=== PATIENT | male | born 1930 | race Caucasian/White ===

== ENCOUNTER 2018-08-29 11:38 | Inpatient (IN) | payer MEDICARE ==
[~2018-08-29] VITALS: Ht 175.3 cm; Wt 77.1 kg
--- NOTE | 2018-08-29 11:44 | NUR ---
PT BROUGHT IN FROM HOME BY PARAMEDICS FOR SOB PT HAS A HISTORY OEMPHYSEMA AND HAS SOMKED FOR 20 YEARS NOT SMOKING NOW. PT ALERT WITH ORIENTATION X 4 PT NOTED TO BE USING ACCOSORY MUSCLES RT AT BEDSIDE PLACED ON NRM SATURATION ON ROOM AIR 91% CURRENTLY 100%. PT HAS 20G PIV IN LEFT AC
[2018-08-29] MEDS ORDERED: methylPREDNISolone SOD SUCC 125 MG/2ML VIAL ONE (11:49)
[2018-08-29] MEDS ORDERED: IPRATROPIUM NEB FS 0.5 MG/2.5 ML AMPUL.NEB NEB ONE (12:00)
[2018-08-29] MEDS ORDERED: methylPREDNISolone SOD SUCC 125 MG/2ML VIAL IV ONE (12:00)
[2018-08-29] MEDS ORDERED: ALBUTEROL FS 2.5 MG/3 ML VIAL.NEB NEB ONE (12:00)
[2018-08-29 12:05] LABS: BASOPHILS # (AUTO) 0.1 /CMM (0.0-0.2); BASOPHILS % (AUTO) 0.4 % (0.0-2.0); HEMATOCRIT 40 % (39-51); HEMOGLOBIN 13.3 g/dL (13.5-17.5); LYMPHOCYTES # (AUTO) 0.4 /CMM (0.8-4.8); LYMPHOCYTES % (AUTO) 3.3 % (20.0-44.0); MEAN CORPUSCULAR HGB CONC 34 g/dl (31.0-36.0); MEAN CORPUSCULAR VOLUME 98 fL (80-96); MONOCYTES # (AUTO) 0.8 /CMM (0.1-1.30); MONOCYTES % (AUTO) 6.5 % (2.0-12.0); NEUTROPHILS # (AUTO) 10.5 /CMM (1.8-8.9); NEUTROPHILS % (AUTO) 89.8 % (43.0-81.0); PLATELET COUNT (AUTO) 145 /CMM (150-450); RED BLOOD CELL COUNT(AUTO) 4.05 MIL/uL (4.5-6.0); WHITE BLOOD COUNT (AUTO) 11.7 K/uL (4.3-11.0)
[2018-08-29] MEDS ORDERED: ALBUTEROL FS 2.5 MG/3 ML VIAL.NEB ONE (12:11)
[2018-08-29] MEDS ORDERED: IPRATROPIUM NEB FS 0.5 MG/2.5 ML AMPUL.NEB ONE (12:11)
--- NOTE | 2018-08-29 12:25 | NUR ---
TROPIN 0.465
[2018-08-29 12:28] LABS: ALANINE AMINOTRANSFERASE 57 U/L (12-78); ALBUMIN 3.2 g/dL (3.4-5.0); ALKALINE PHOSPHATASE 241 U/L (46-116); ASPARTATE AMINOTRANSFERASE 52 U/L (15-37); B-TYPE NATRIURETIC PEPTIDE 18050 PG/ML (0-125); BILIRUBIN,DIRECT 0.8 mg/dL (0.0-0.2); BILIRUBIN,TOTAL 2.1 mg/dL (0.2-1.0); CALCIUM, SERUM 8.7 mg/dL (8.5-10.1); CARBON DIOXIDE 29 mmol/L (21-32); CHLORIDE 105 mmol/L (98-107); CREATININE 2.5 mg/dL (0.6-1.3); GLUCOSE 142 mg/dL (74-106); SODIUM SERUM 140 mmol/L (136-145); TOTAL PROTEIN, SERUM 7.1 g/dL (6.4-8.2); UREA NITROGEN, BLOOD 50 mg/dL (7-18)
[2018-08-29] MEDS ORDERED: LOSA25TA27 PO (12:41)
[2018-08-29] MEDS ORDERED: AMLO2.5T3 PO (12:41)
--- NOTE | 2018-08-29 12:41 | NUR ---
CALLED [facility]ARDO FOR STAT READ ON CXR
--- NOTE | 2018-08-29 12:42 | NUR ---
TELE 324-2
[2018-08-29] MEDS ORDERED: BUDE10.22 IH (12:48)
[2018-08-29] MEDS ORDERED: CEFTRIAXONE 1 G VIAL ONE (12:50)
[2018-08-29] MEDS ORDERED: ASPIRIN 325 MG TABLET PO ONE (13:00)
[2018-08-29] MEDS ORDERED: FUROSEMIDE 40 MG/4 ML VIAL IV ONE (13:00)
[2018-08-29] MEDS ORDERED: AZITHROMYCIN 500 MG in IV D5W 250 ML IV ONE (13:00)
[2018-08-29] MEDS ORDERED: CEFTRIAXONE 1GM BAG (ER ONLY) 50 ML IV ONE (13:00)
--- NOTE | 2018-08-29 13:06 | NUR ---
PAGED DR DOYLE FOR PANEL ADMISSION
[2018-08-29] MEDS ORDERED: ASPIRIN 325 MG TABLET ONE (13:15)
[2018-08-29] MEDS ORDERED: FUROSEMIDE 40 MG/4 ML VIAL ONE (13:15)
[2018-08-29] MEDS ORDERED: ACETAMINOPHEN 325 MG TABLET PO PRN (13:30)
[2018-08-29] MEDS ORDERED: Z GUARD REMEDY 2 OZ OINT TP PRN (13:30)
[2018-08-29] MEDS ORDERED: ONDANSETRON HCL/PF 4 MG/2 ML VIAL IVP PRN (13:30)
[2018-08-29] MEDS ORDERED: MAG HYDROX/AL HYDROX/SIMETH 30 ML UDC PO PRN (13:30)
[2018-08-29] MEDS ORDERED: MAGNESIUM HYDROXIDE 30 ML UDC PO PRN (13:30)
[2018-08-29] MEDS ORDERED: HYDROCODONE/APAP 5/325MG 1 EACH TABLET PO PRN (13:30)
--- NOTE | 2018-08-29 13:43 | NUR ---
PT ADMITTED TO ROOM 234-2 RN REPORT GIVEN TO ASNAC
--- NOTE | 2018-08-29 13:50 | NUR ---
EMBLEM MAKERACTIVITY THERAPY TEACHER NOTES RECEIVED PT FROM ER NURSE IN STABLE CONDITION. PT WILL BE ADMITTED FOR CHF. PT'S CURRENT WEIGHT IS 177.2. ADMISSION ORDERS NOTED PT IS A/O X3. HE DENIES SOB AT THIS TIME. BREATHING IS EVEN AND UNLABORED. PT PLACED ON 2.5 L VIA NC AND SATING AT 93%. IV TO RIGHT AC NOTED TO BE PATENT AND INTACT. NO REDNESS OR SIGNS OF INFILTRATION NOTED. TELE LEADS PLACE. PT IS CURRENTLY SINUS TACH ON THE MONITOR WITH A HR OF 106. HE DENIES ANY CHEST PAIN. BELONGINGS VERIFIED BY PEDIATRIC DENTAL HYGIENIST. PT ORIENTATED TO ROOM AND USE OF CALL LIGHT. BED IN LOW LOCKED POSITION, SIDE RAILS UP X2, CALL LIGHT WITHIN REACH. WILL CONTINUE TO MONITOR
[2018-08-29 14:00] VITALS: BP 166/73
[2018-08-29] MEDS ORDERED: CLONIDINE HCL 0.1 MG TABLET PO PRN (14:00)
[2018-08-29] MEDS: CARVEDILOL 3.125 MG TABLET PO SCH ×2 (15:02→21:06)
--- NOTE | 2018-08-29 15:57 | NUR ---
TELEPHONE ORDER OBTAINED FROM DR. DOYLE FOR PRN ALBUTEROL 2.5MG Q6HR
[2018-08-29 16:00] VITALS: BP 141/84
[2018-08-29] MEDS ORDERED: ALBUTEROL FS 2.5 MG/0.5 ML VIAL.NEB NEB PRN (16:00)
[2018-08-29 16:18] LABS: MAGNESIUM 2.6 mg/dL (1.8-2.4); PHOSPHORUS 4.3 mg/dL (2.5-4.9)
[2018-08-29 16:50] LABS: THYROID STIMULATING HORMONE 2.294 uIU/mL (0.358-3.74)
[2018-08-29] MEDS ORDERED: FUROSEMIDE 40 MG/4 ML VIAL IV SCH (17:00)
[2018-08-29] MEDS: ENOXAPARIN SODIUM 30 MG/0.3 ML DISP.SYRIN SQ SCH (17:29)
[2018-08-29] MEDS: FUROSEMIDE 40 MG/4 ML VIAL IV SCH ×2 (17:30→20:12)
[2018-08-29] MEDS: DILTIAZEM HCL CD 240 MG PO SCH (17:31)
--- NOTE | 2018-08-29 18:48 | NUR ---
WEBSITE ADMIN CLOSING NOTES PT REMAINS STABLE SINCE ADMISSION. VITALS STABLE AT THIS TIME. HE CONTINUES TO DENY ANY SOB. IV REMAINS PATENT AND INTACT. HE REMAINS ST ON THE TELE MONITOR WITH A CURRENT HR OF 109. SAFETY MEASURES REMAIN IN PLACE. WILL ENDORSE TO NIGHTSHIFT RN FOR LYLE
--- NOTE | 2018-08-29 19:05 | NUR ---
CLEANER AND TRIMMER INITIAL NOTES Received patient sitting up in bed, watching TV. Alert, oriented x 4. Breathing even and unlabored. Not in any distress. No complaints of pain or discomfort as of this time. Tele monitor in place, reading sinus tachy with PVC's HR 109. Call landry within reach. Bed in low, locked position. Patient stable as endorsed by the morning shift RN. Will continue to monitor accordingly
[2018-08-29 20:00] VITALS: BP 143/75
[2018-08-29] MEDS: methylPREDNISolone SOD SUCC 125 MG/2ML VIAL IV SCH (21:05)
[2018-08-29] MEDS: NITROGLYCERIN PACKET 1 GM PACKET TOP SCH (21:13)
--- NOTE | 2018-08-29 23:15 | NUR ---
LOCKSTITCH FRONT EDGE TAPE SEWER NOTES On tele monitor, HR is 125-130. Checked on patient if he feels like his heart is racing fast, as per patient," no, i don't feel anything out of the ordinary. I don't feel like my heart is beating faster than usual."
[2018-08-30] VITALS: BP 110/66
[2018-08-30] MEDS: FUROSEMIDE 40 MG/4 ML VIAL IV SCH (00:03)
[2018-08-30 04:00] VITALS: BP 125/63
[2018-08-30] MEDS: NITROGLYCERIN PACKET 1 GM PACKET TOP SCH ×3 (05:15→21:06)
[2018-08-30 06:10] LABS: BASOPHILS % (AUTO) 0.5 % (0.0-2.0); HEMATOCRIT 39 % (39-51); HEMOGLOBIN 12.7 g/dL (13.5-17.5); LYMPHOCYTES # (AUTO) 0.3 /CMM (0.8-4.8); LYMPHOCYTES % (AUTO) 3.1 % (20.0-44.0); MEAN CORPUSCULAR HGB CONC 33 g/dl (31.0-36.0); MEAN CORPUSCULAR VOLUME 99 fL (80-96); MONOCYTES # (AUTO) 0.1 /CMM (0.1-1.30); MONOCYTES % (AUTO) 1.4 % (2.0-12.0); NEUTROPHILS # (AUTO) 8.7 /CMM (1.8-8.9); PLATELET COUNT (AUTO) 153 /CMM (150-450); WHITE BLOOD COUNT (AUTO) 9.1 K/uL (4.3-11.0)
[2018-08-30 06:26] LABS: CALCIUM, SERUM 8.7 mg/dL (8.5-10.1); CARBON DIOXIDE 26 mmol/L (21-32); CHLORIDE 105 mmol/L (98-107); CREATININE 2.8 mg/dL (0.6-1.3); GLUCOSE 188 mg/dL (74-106); MAGNESIUM 2.5 mg/dL (1.8-2.4); PHOSPHORUS 4.9 mg/dL (2.5-4.9); POTASSIUM 4.7 mmol/L (3.5-5.1); SODIUM SERUM 143 mmol/L (136-145); UREA NITROGEN, BLOOD 58 mg/dL (7-18)
[2018-08-30 06:40] LABS: CHOLESTEROL 131 mg/dL (<200); HDL CHOLESTEROL 59 mg/dL (40-60); LDL 62 mg/dL (0-99); TRIGLYCERIDES 72 mg/dL (30-150)
--- NOTE | 2018-08-30 06:40 | NUR ---
[facility] NOTES Lab called for critical value. Trop I 0.400. Dr. Laguerre aware. No orders as of this time
--- NOTE | 2018-08-30 06:57 | NUR ---
GENERATOR WORKER CLOSING NOTES Patient sitting up in bed, alert, oriented x 4. Breathing even and unlabored. Not in any distress. No complaints as of this time. Tele monitor in place, sinus tachy with PACs and BBB HR 120. IV site on LAC g#20 intact and patent. All needs attended to. All due medications given as ordered. Call landry within reach.Bed in low, locked position. Will endorse LYLE to oncoming RN
[2018-08-30] MEDS ORDERED: AZITHROMYCIN 500 MG in IV D5W 250 ML IV SCH (07:00)
--- NOTE | 2018-08-30 07:57 | NUR ---
SUPERVISOR PARTICLEBOARD OPENING NOTES RECEIVED PT FROM NIGHTSHIFT NURSE IN STABLE CONDITION. PT IS A/O X3. NO SOB OR ACUTE SIGNS OF DISTRESS NOTED. BREATHING IS EVEN AND UNLABORED. PT ON 2 L VIA NC AND SATING WELL. IV TO RIGHT AC NOTED TO BE PATENT AND INTACT. NO REDNESS OR SIGNS OF INFILTRATION NOTED. PT IS CURRENTLY SINUS TACH ON THE MONITOR WITH A HR OF 112. HE DENIES ANY CHEST PAIN. BED IN LOW LOCKED POSITION, SIDE RAILS UP X2, CALL LIGHT WITHIN REACH. WILL CONTINUE TO MONITOR
[2018-08-30 08:00] VITALS: BP 124/76
[2018-08-30 08:20] LABS: ALBUMIN 2.9 g/dL (3.4-5.0); BILIRUBIN,DIRECT 0.4 mg/dL (0.0-0.2); BILIRUBIN,TOTAL 1.1 mg/dL (0.2-1.0)
[2018-08-30] MEDS: FLUTICASONE/VILANTEROL 1 EACH BLST.W.DEV IH SCH (08:23)
[2018-08-30] MEDS: methylPREDNISolone SOD SUCC 125 MG/2ML VIAL IV SCH (08:24)
[2018-08-30] MEDS: ASPIRIN 325 MG TABLET PO SCH (08:24)
[2018-08-30] MEDS: DILTIAZEM HCL CD 240 MG PO SCH (08:25)
[2018-08-30] MEDS: CARVEDILOL 3.125 MG TABLET PO SCH ×2 (08:26→21:05)
[2018-08-30] MEDS ORDERED: AMLODIPINE BESYLATE 5 MG TABLET PO SCH (09:00)
[2018-08-30] MEDS ORDERED: Medication Not On Formulary EA (Budesonide/Formoterol Fumarate (Symbicort 80-4.5 Mcg Inh IH SCH (09:00)
[2018-08-30] MEDS: AZITHROMYCIN 500 MG in IV D5W 250 ML IV SCH (12:18)
[2018-08-30] MEDS: IPRATROPIUM NEB FS 0.5 MG/2.5 ML AMPUL.NEB NEB PRN (12:28)
[2018-08-30] MEDS: CEFTRIAXONE 1 G in IV D5W 50 ML IV SCH (13:38)
[2018-08-30] MEDS: LACTOBACILLUS RHAMNOSUS GG 1 EACH CAP.SPRINK PO SCH (16:07)
[2018-08-30 16:11] VITALS: BP 104/55
--- NOTE | 2018-08-30 19:08 | NUR ---
MS RN CLOSING NOTES PT REMAINS STABLE. VITALS STABLE THROUGHOUT SHIFT. HE CONTINUES TO DENY ANY SOB. IV REMAINS PATENT AND INTACT. SAFETY MEASURES REMAIN IN PLACE. WILL ENDORSE TO NIGHTSHIFT RN FOR LYLE
--- NOTE | 2018-08-30 19:10 | NUR ---
RN INITIAL NOTES Received patient sitting up in bed, alert, oriented x 4. Breathing even and unlabored. Not in any distress. Able to make needs known. No complaints of pain or discomfort as of this time. Call landry within reach. Bed in low, locked position. Patient stable as endorsed by the morning shift RN. Will continue to monitor accordingly
[2018-08-30 20:00] VITALS: BP_SYST 123; BP_SYST 132; BP_DIAS 75; BP_DIAS 77
[2018-08-30] MEDS: ENOXAPARIN SODIUM 30 MG/0.3 ML DISP.SYRIN SQ SCH (21:08)
[2018-08-31 00:40] VITALS: BP 122/55
--- NOTE | 2018-08-31 00:40 | NUR ---
RN NOTES Patient complaining of shortness of breath. V/S checked; BP- 122/55, HR- 57, SPO2- 92%. Called RT for breathing treatment
[2018-08-31] MEDS: IPRATROPIUM NEB FS 0.5 MG/2.5 ML AMPUL.NEB NEB PRN ×2 (00:44→12:35)
[2018-08-31] MEDS: NITROGLYCERIN PACKET 1 GM PACKET TOP SCH ×3 (05:00→20:52)
--- NOTE | 2018-08-31 06:22 | NUR ---
RN CLOSING NOTES Patient sitting up in bed, alert, oriented x 4. Able to make needs known. Not in any distress. Stated that he feels better, no SOB. No complaints as of this time. Call landry within reach. Bed in low, locked position. Will endorse LYLE to oncoming RN.
--- NOTE | 2018-08-31 07:37 | NUR ---
HOSPICE OFFICE COORDINATOR OPENING NOTES RECEIVED PATIENT AWAKE IN BED IN NO ACUTE SIGNS OF DISTRESS. HOB ELEVATED. A/O X4. VERBALLY RESPONSIVE, DENIES ANY PAIN OR DISCOMFORTS AT THIS TIME. ON ROOM AIR, BREATHING EVEN AND UNLABORED. IV ACCESS ON TRAMAINE INTACT AND PATENT, IVF OF NS @ 75 ML/HR AND HEPARIN DRIP @ 19 ML/HR INFUSING, NO S/S OF INFILTRATIONS NOTED. ON TELE-MONITORING WITH CURRENT READING OF NSR AND HR OF 65, NO C/O CARDIAC DISTRESS VOICED. SAFETY MEASURES IN PLACE . BED IN LOW LOCKED POSITION WITH SIDE-RAILS UP X2. CALL LIGHT IN REACH. WILL CONTINUE TO MONITOR PT ACCORDINGLY Addendum: 08/31/18 at 0747 by GERALDINE TELLEZ RN ERROR: PROGRESS NOTES IS FOR DIFFERENT PATIENT.
--- NOTE | 2018-08-31 07:41 | NUR ---
MS RN OPENING NOTES RECEIVED PT FROM NIGHTSHIFT NURSE IN STABLE CONDITION. PT IS A/O X3. NO SOB OR ACUTE SIGNS OF DISTRESS NOTED. BREATHING IS EVEN AND UNLABORED. PT ON 2 L VIA NC AND SATING WELL. IV TO LEFT FA NOTED TO BE PATENT AND INTACT. NO REDNESS OR SIGNS OF INFILTRATION NOTED. HE DENIES ANY CHEST PAIN. BED IN LOW LOCKED POSITION, SIDE RAILS UP X2, CALL LIGHT WITHIN REACH. WILL CONTINUE TO MONITOR
[2018-08-31 08:24] VITALS: BP 126/56
[2018-08-31] MEDS: FLUTICASONE/VILANTEROL 1 EACH BLST.W.DEV IH SCH (08:38)
[2018-08-31] MEDS: LACTOBACILLUS RHAMNOSUS GG 1 EACH CAP.SPRINK PO SCH ×2 (08:39→17:28)
[2018-08-31] MEDS: ASPIRIN 325 MG TABLET PO SCH (08:39)
[2018-08-31] MEDS: CARVEDILOL 3.125 MG TABLET PO SCH ×2 (08:40→20:52)
[2018-08-31] MEDS: DILTIAZEM HCL CD 240 MG PO SCH (09:00)
[2018-08-31] MEDS ORDERED: methylPREDNISolone SOD SUCC 125 MG/2ML VIAL IV SCH (09:00)
[2018-08-31] MEDS: AZITHROMYCIN 500 MG in IV D5W 250 ML IV SCH (11:16)
[2018-08-31] MEDS ORDERED: FLUTICASONE PROPIONATE 16 GM BOTTLE NS PRN (11:30)
[2018-08-31 12:02] LABS: CALCIUM, SERUM 8.4 mg/dL (8.5-10.1); CARBON DIOXIDE 26 mmol/L (21-32); CHLORIDE 103 mmol/L (98-107); CREATININE 4.3 mg/dL (0.6-1.3); GLUCOSE 188 mg/dL (74-106); MAGNESIUM 2.9 mg/dL (1.8-2.4); PHOSPHORUS 6.8 mg/dL (2.5-4.9); POTASSIUM 4.8 mmol/L (3.5-5.1); SODIUM SERUM 140 mmol/L (136-145)
[2018-08-31 12:18] LABS: UREA NITROGEN, BLOOD 93 mg/dL (7-18)
[2018-08-31 12:20] LABS: BASOPHILS % (AUTO) 0.1 % (0.0-2.0); HEMATOCRIT 38 % (39-51); HEMOGLOBIN 12.2 g/dL (13.5-17.5); LYMPHOCYTES # (AUTO) 0.2 /CMM (0.8-4.8); MEAN CORPUSCULAR HGB CONC 33 g/dl (31.0-36.0); MEAN CORPUSCULAR VOLUME 100 fL (80-96); MONOCYTES # (AUTO) 0.6 /CMM (0.1-1.30); MONOCYTES % (AUTO) 4.5 % (2.0-12.0); NEUTROPHILS # (AUTO) 11.6 /CMM (1.8-8.9); NEUTROPHILS % (AUTO) 93.4 % (43.0-81.0); PLATELET COUNT (AUTO) 174 /CMM (150-450); RED BLOOD CELL COUNT(AUTO) 3.75 MIL/uL (4.5-6.0); WHITE BLOOD COUNT (AUTO) 12.4 K/uL (4.3-11.0)
--- NOTE | 2018-08-31 12:27 | NUR ---
MS RN NOTES: CRITICAL VALUE BLOCKING MACHINE OPERATOR SECOND CALLED TO REPORT A CRITICAL LAB BUN VALUE OF 98. A REPEAT WAS ASKED AND RESULTED TO 93. DR. GREENE AT BEDSIDE WITH PT AND WAS INFORMED OF CRITICAL VALUE. PER MD "I WILL D/C PTS ABX, AND BEGIN HYDRATION FLUIDS TO FLUSH OUT HIS KIDNEYS". WILL CARRY OUT ORDERS
[2018-08-31] MEDS: CEFTRIAXONE 1 G in IV D5W 50 ML IV SCH (12:42)
[2018-08-31] MEDS ORDERED: IV NS 0.9% 1,000 ML IV PRN (12:45)
[2018-08-31 16:00] VITALS: BP 113/52
--- NOTE | 2018-08-31 18:32 | NUR ---
MS RN CLOSING NOTES PT REMAINS STABLE. VITALS STABLE THROUGHOUT SHIFT. HE CONTINUES TO DENY ANY SOB. HE DENIES ANY CHEST PAIN. IV REMAINS PATENT AND INTACT. PT TOLERATING NS INFUSION WELL. SAFETY MEASURES REMAIN IN PLACE. WILL ENDORSE TO NIGHTSHIFT RN FOR LYLE
--- NOTE | 2018-08-31 19:42 | NUR ---
RN MS OPENING NOTES RECEIVED PT SITTING UP IN BED, AWAKE, A/OX4. BREATHING EVEN AND UNLABORED ON 2L OF O2 VIA NC. NO COMPLAINT OF PAIN OR DISCOMFORT. IV ACCESS ON THE L FA 22G WITH NS @50ML/HR. BED IN LOWEST LOCKED POSITION, CALL LIGHT WITHIN REACH AT ALL TIMES. WILL CONTINUE TO MONITOR.
[2018-08-31 20:00] VITALS: BP 125/71
[2018-08-31] MEDS: ENOXAPARIN SODIUM 30 MG/0.3 ML DISP.SYRIN SQ SCH (20:54)
[2018-08-31 21:23] LABS: CREATININE, URINE 166.9 MG/DL (30.0-125.0); URINE TOTAL PROTEIN 17.9 mg/dL (0-11.9)
[2018-08-31 21:48] LABS: APPEARANCE,URINE CLEAR (CLEAR); BILIRUBIN,URINE NEGATIVE (NEGATIVE); BLOOD, URINE NEGATIVE Ery/uL (NEGATIVE); COLOR,URINE YELLOW (YELLOW); KETONES,URINE NEGATIVE (NEGATIVE); LEUKOCYTE ESTERASE ,URINE NEGATIVE (NEGATIVE); NITRITE, URINE NEGATIVE (NEGATIVE); PROTEIN,URINE NEGATIVE (NEGATIVE); UGLUCOSE NEGATIVE (NEGATIVE); UROBILINOGEN,URINE 0.2 EU/dL (0.2)
[2018-08-31 21:51] LABS: EOSINOPHIL,URINE None Seen
[2018-09-01] MEDS: NITROGLYCERIN PACKET 1 GM PACKET TOP SCH ×3 (05:00→21:00)
--- NOTE | 2018-09-01 06:43 | NUR ---
RN MS CLOSING NOTES PT REMAINS IN BED, AWAKE, A/OX4, BREATHING EVEN AND UNLABORED ON O2 2L VIA NC AND TOLERATING SATING AT 94. NO COMPLAINT OF PAIN OR DISCOMFORT DURING SHIFT. IV ACCESS ON THE L FA #22G WITH NS@50ML/HR. BED IN LOWEST LOCKED POSITION, CALL LIGHT WITHIN REACH AT ALL TIMES, WILL ENDORSE TO DAY NURSE FOR LYLE
[2018-09-01 08:00] VITALS: BP 123/69
[2018-09-01 08:47] LABS: BASOPHILS % (AUTO) 0.1 % (0.0-2.0); HEMATOCRIT 38 % (39-51); HEMOGLOBIN 12.5 g/dL (13.5-17.5); LYMPHOCYTES # (AUTO) 0.3 /CMM (0.8-4.8); LYMPHOCYTES % (AUTO) 2.4 % (20.0-44.0); MEAN CORPUSCULAR HGB CONC 33 g/dl (31.0-36.0); MEAN CORPUSCULAR VOLUME 100 fL (80-96); MONOCYTES # (AUTO) 0.8 /CMM (0.1-1.30); MONOCYTES % (AUTO) 5.8 % (2.0-12.0); NEUTROPHILS # (AUTO) 12.5 /CMM (1.8-8.9); NEUTROPHILS % (AUTO) 91.7 % (43.0-81.0); PLATELET COUNT (AUTO) 195 /CMM (150-450); RED BLOOD CELL COUNT(AUTO) 3.84 MIL/uL (4.5-6.0); WHITE BLOOD COUNT (AUTO) 13.6 K/uL (4.3-11.0)
[2018-09-01 09:01] LABS: CREATINE KINASE, TOTAL 91 U/L (39-308)
[2018-09-01 09:02] LABS: ALANINE AMINOTRANSFERASE 76 U/L (12-78); ALBUMIN 2.8 g/dL (3.4-5.0); ALKALINE PHOSPHATASE 200 U/L (46-116); ASPARTATE AMINOTRANSFERASE 65 U/L (15-37); BILIRUBIN,TOTAL 0.5 mg/dL (0.2-1.0); CARBON DIOXIDE 22 mmol/L (21-32); CHLORIDE 104 mmol/L (98-107); CREATININE 4.5 mg/dL (0.6-1.3); GLUCOSE 126 mg/dL (74-106); MAGNESIUM 2.9 mg/dL (1.8-2.4); PHOSPHORUS 7.6 mg/dL (2.5-4.9); POTASSIUM 5.1 mmol/L (3.5-5.1); SODIUM SERUM 139 mmol/L (136-145); TOTAL PROTEIN, SERUM 6.6 g/dL (6.4-8.2)
[2018-09-01 09:05] LABS: UREA NITROGEN, BLOOD 112 mg/dL (7-18)
[2018-09-01] MEDS: ASPIRIN 325 MG TABLET PO SCH (09:38)
[2018-09-01] MEDS: LACTOBACILLUS RHAMNOSUS GG 1 EACH CAP.SPRINK PO SCH ×2 (09:38→17:54)
[2018-09-01] MEDS: CARVEDILOL 3.125 MG TABLET PO SCH ×2 (09:38→21:00)
[2018-09-01] MEDS: DILTIAZEM HCL CD 240 MG PO SCH (09:39)
[2018-09-01] MEDS: FLUTICASONE/VILANTEROL 1 EACH BLST.W.DEV IH SCH (09:45)
[2018-09-01] MEDS ORDERED: BUMETANIDE INJ 16 MG in IV NS 0.9% 16 ML IV ONE (10:30)
--- NOTE | 2018-09-01 11:02 | NUR ---
WOUND CARE CONSULT: PT PRESENTS WITH DRY SKIN AND RASH TO BACK, PRESENT ON ADMISSION. PT STATES THAT RASH IS RESOLVING. DEFER TO MD FOR RASH. RECOMMENDATIONS MADE FOR SKIN PROTECTION AND CARE. DISCUSSED WITH NURSING STAFF. PT IS CONTINENT AND GETS UP TO COMMODE. WILL SEE PRN. BARAJAS IN AGREEMENT WITH PLAN OF CARE. Addendum: 09/01/18 at 1103 by MEGAN LUND WNDNU Amended: Links added.
[2018-09-01] MEDS ORDERED: MINERAL OIL/PETROLATUM,WHITE 120 GM JAR TP PRN (11:30)
[2018-09-01] MEDS: METOLAZONE 2.5 MG TABLET PO SCH (12:58)
[2018-09-01 16:00] VITALS: BP 111/57
--- NOTE | 2018-09-01 19:45 | NUR ---
RN MS OPENING NOTES RECEIVED PT IN BED, AWAKE, ALERT/ ORIENTED X4 BREATHING EVEN AND UNLABORED ON O2 2L VIA NC AND TOLERATING. NO COMPLAINT OF DISCOMFORT OR SHORTNESS OF BREATH AT THE MOMENT. IV ACCESS ON THE L FA #22G SL PATENT AND FLUSHING. BED IN LOWEST LOCKED POSITION, CALL LIGHT WITHIN REACH AT ALL TIMES, WILL CONTINUE TO MONITOR
[2018-09-01 20:00] VITALS: BP 111/45
[2018-09-01] MEDS: ENOXAPARIN SODIUM 30 MG/0.3 ML DISP.SYRIN SQ SCH (21:07)
[2018-09-02] MEDS: IPRATROPIUM NEB FS 0.5 MG/2.5 ML AMPUL.NEB NEB PRN (03:35)
[2018-09-02] MEDS: NITROGLYCERIN PACKET 1 GM PACKET TOP SCH ×2 (04:35→12:55)
--- NOTE | 2018-09-02 06:27 | NUR ---
RN MS CLOSING NOTES PT REMAINS IN BED, AWAKE, A/OX4, BREATHING EVEN AND UNLABORED ON O2 3L VIA NC AND TOLERATING SATING AT 92. NO COMPLAINT OF PAIN OR DISCOMFORT AT THE MOMENT. IV ACCESS ON THE L FA #22G. BED IN LOWEST LOCKED POSITION, CALL LIGHT WITHIN REACH AT ALL TIMES, WILL ENDORSE TO DAY NURSE FOR LYLE
[2018-09-02 07:51] LABS: BASOPHILS % (AUTO) 0.2 % (0.0-2.0); EOSINOPHILS % (AUTO) 0.3 % (0.0-6.0); HEMATOCRIT 37 % (39-51); HEMOGLOBIN 12.3 g/dL (13.5-17.5); LYMPHOCYTES # (AUTO) 0.5 /CMM (0.8-4.8); LYMPHOCYTES % (AUTO) 4.8 % (20.0-44.0); MEAN CORPUSCULAR HGB CONC 33 g/dl (31.0-36.0); MEAN CORPUSCULAR VOLUME 99 fL (80-96); MONOCYTES # (AUTO) 0.9 /CMM (0.1-1.30); MONOCYTES % (AUTO) 8.5 % (2.0-12.0); NEUTROPHILS # (AUTO) 9.1 /CMM (1.8-8.9); NEUTROPHILS % (AUTO) 86.2 % (43.0-81.0); PLATELET COUNT (AUTO) 170 /CMM (150-450); RED BLOOD CELL COUNT(AUTO) 3.75 MIL/uL (4.5-6.0); WHITE BLOOD COUNT (AUTO) 10.6 K/uL (4.3-11.0)
[2018-09-02 07:56] LABS: ALANINE AMINOTRANSFERASE 88 U/L (12-78); ALBUMIN 2.7 g/dL (3.4-5.0); ALKALINE PHOSPHATASE 191 U/L (46-116); ASPARTATE AMINOTRANSFERASE 65 U/L (15-37); BILIRUBIN,TOTAL 0.5 mg/dL (0.2-1.0); CALCIUM, SERUM 7.6 mg/dL (8.5-10.1); CARBON DIOXIDE 25 mmol/L (21-32); CHLORIDE 104 mmol/L (98-107); GLUCOSE 127 mg/dL (74-106); MAGNESIUM 2.9 mg/dL (1.8-2.4); PHOSPHORUS 7.5 mg/dL (2.5-4.9); POTASSIUM 4.3 mmol/L (3.5-5.1); SODIUM SERUM 141 mmol/L (136-145); TOTAL PROTEIN, SERUM 6.1 g/dL (6.4-8.2)
--- NOTE | 2018-09-02 07:57 | NUR ---
MS RN OPENING NOTE PT IN BED, AWAKE, A/OX4, BREATHING EVEN AND UNLABORED ON O2 3L VIA NC AND TOLERATING SATING AT 92. NO COMPLAINT OF PAIN OR DISCOMFORT . IV ACCESS ON THE L FA #22G. BED IN LOWEST LOCKED POSITION, CALL LIGHT WITHIN REACH WITH BILATERAL UPPER SIDE RAILS UP. ALL NEEDS ARE CURRENTLY MET. WILL CONTINUE TO MONITOR PT.
[2018-09-02 07:58] LABS: UREA NITROGEN, BLOOD 129 mg/dL (7-18)
[2018-09-02 08:00] VITALS: BP 129/67
[2018-09-02] MEDS: FLUTICASONE/VILANTEROL 1 EACH BLST.W.DEV IH SCH (09:19)
[2018-09-02] MEDS: METOLAZONE 2.5 MG TABLET PO SCH (09:20)
[2018-09-02] MEDS: LACTOBACILLUS RHAMNOSUS GG 1 EACH CAP.SPRINK PO SCH ×2 (09:20→17:33)
[2018-09-02] MEDS: CARVEDILOL 3.125 MG TABLET PO SCH (09:20)
[2018-09-02] MEDS: ASPIRIN 325 MG TABLET PO SCH (09:20)
[2018-09-02] MEDS: DILTIAZEM HCL CD 240 MG PO SCH (09:21)
[2018-09-02 13:11] LABS: PTH, INTACT 203 pg/mL (15-65)
[2018-09-02 16:00] VITALS: BP 113/54
--- NOTE | 2018-09-02 18:51 | NUR ---
MS RN CLOSING NOTE PT IN BED AWAKE, A&O X4, NO COMPLAINTS OF PAIN, RESPIRATIONS NORMAL, CALL LIGHT WITHIN REACH, PT AND CUONG (DAUGHTER) WISH TO LEAVE AMA TO TRANSFER TO [facility]. PER BRICK KILN WORKER, PT'S INSURANCE IS NOT AUTHORIZING THE TRANSFER TO [facility] EVEN IF PT. HAS BEEN ACCEPTED AT [facility], PT'S DAUGHTER CUONG STILL WANTS HIS DAD TRANSFERRED AND THEY WILL SIGN OUT AMA. PT AND DAUGHTER WERE INFORMED OF THE RISKS INVOLVED, STILL WOULD LIKE TO LEAVE AMA. SHANTEL POLANCO (CATTLE BROKER) INFORMED OF PT'S AND DAUGHTER'S DECISION. EDUCATIONAL MATERIAL AND DIAGNOSTIC RESULTS PROVIDED TO PT, BELONGINGS ACCOUNTED FOR, PT SIGNED AMA FORM, AMBULANCE OFFICE SUPPORT ARRANGED BY BRICK KILN WORKER FOR TRANSPORT TO [facility] ROSLYN COPE.
--- NOTE | 2018-09-02 19:43 | NUR ---
MS/RN NOTES RECEIVED PT. SITTING UP IN BED. PT. IS AWAKE, ALERT AND ORIENTED X4. BREATHING EVEN AND UNLABORED ON 3LPM O2 VIA NC. NO SOB, RESPIRATORY DISTRESS OR COMPLAINTS OF PAIN NOTED AT THIS TIME. PER DAYSHIFT NURSE PT. IS LEAVING AMA, AMA FORM SIGNED AND PLACED IN PT. CHART. DAYSHIFT NURSE REMOVED PT. IV ACCESS, NO S/S OF BLEEDING NOTED AT PREVIOUS IV SITE. PT. IS AWAITING PICK-UP BY AMBULANCE. PER DAYSHIFT NURSE PT. BELONGINGS LIST AND EDUCATIONAL PAPERWORK ORIGINALS SIGNED AND PLACED IN PT. CHART, COPY PROVIDED TO PT. PT. IN STABLE CONDITION. REMOVED PT. ID BAND. PT. LEFT THE FLOOR VIA ANTONYRKAM ACCOMPANIED BY EMT'S AT 1943.
[2018-09-03 06:08] LABS: *SPE A/G RATIO 1.1 (0.7-1.7); *SPE ALBUMIN 3.1 g/dL (2.9-4.4); *SPE ALPHA-1-GLOBULIN 0.3 g/dL (0.0-0.4); *SPE ALPHA-2-GLOBULIN 0.8 g/dL (0.4-1.0); *SPE BETA GLOBULIN 1.1 g/dL (0.7-1.3); *SPE GLOBULIN, TOTAL 2.9 g/dL (2.2-3.9); *SPE M-SPIKE Not Observed g/dL (Not Observed); *SPEGAMMA GLOBULIN 0.8 g/dL (0.4-1.8)
== END 2018-09-02 19:53 | disposition left against medical advice (07) | DRG 280 ==
LOC: ER 11:40 → TELE 13:25 → MED 08-30 08:55
PROVIDERS: ADMIT Internal Medicine; ATTEND Internal Medicine
DX: I13.0 Hypertensive heart and chronic kidney disease with heart failure and stage 1 through stage 4 chronic kidney disease, or unspecified chronic kidney disease (principal); N17.0 Acute kidney failure with tubular necrosis; I21.A1 Myocardial infarction type 2; I50.33 Acute on chronic diastolic (congestive) heart failure; J96.21 Acute and chronic respiratory failure with hypoxia; J15.9 Unspecified bacterial pneumonia; E44.0 Moderate protein-calorie malnutrition; J44.1 Chronic obstructive pulmonary disease with (acute) exacerbation; J44.0 Chronic obstructive pulmonary disease with (acute) lower respiratory infection; N18.9 Chronic kidney disease, unspecified; E83.39 Other disorders of phosphorus metabolism; E83.41 Hypermagnesemia; Z99.81 Dependence on supplemental oxygen; Z87.891 Personal history of nicotine dependence; I48.0 Paroxysmal atrial fibrillation; J20.9 Acute bronchitis, unspecified; R74.0 Nonspecific elevation of levels of transaminase and lactic acid dehydrogenase [LDH]; E88.09 Other disorders of plasma-protein metabolism, not elsewhere classified; I35.0 Nonrheumatic aortic (valve) stenosis; M62.50 Muscle wasting and atrophy, not elsewhere classified, unspecified site; J20.8 Acute bronchitis due to other specified organisms
CPT/HCPCS: 36415; 71045-TC; 76700-TC; 76770-TC; 80048-TC; 80053-TC; 80061-TC; 80076-TC; 81000-TC; 82550-TC; 82570-TC; 83605-TC; 83735-TC; 83880; 83970; 84100-TC; 84155; 84155-TC; 84165; 84300-TC; 84439-TC; 84443-TC; 84484-TC; 85025-TC; 85730-TC; 87040-TC; 87081-TC; 93307-TC; 94799-TC; A4216; A4606; G0378; J0456; J0696; J1650; J1940; J2930; J3490; J7030; J7050; J7060; Z7610